=== PATIENT | female | born 1995 | race Caucasian/White ===

== ENCOUNTER 2020-12-26 09:01 | Emergency (ER) | payer BC, OTHER ==
[~2020-12-26] VITALS: Ht 160 cm; Wt 102.1 kg
[~2020-12-26 09:01] MED LIST: PRED20TA PO
[2020-12-26] MEDS ORDERED: NS 1,000 ML IV ONE (09:40)
[2020-12-26 11:05] LABS: BASO # 0.1 10^3/uL (0.0-0.2); BASO % 0.5 % (0.0-1.0); EOS # 0.2 10^3/uL (0.0-0.5); EOS % 1.4 % (0.0-3.0); HEMATOCRIT 39.4 % (36.0-47.0); LYMPH % 26.8 % (24.0-44.0); MEAN CORPUSCULAR HEMOGLOBIN 28.9 pg (27.0-33.0); MEAN CORPUSCULAR VOLUME 87.6 fl (80.0-96.0); MONO # 0.8 10^3/uL (0.0-0.8); MONO % 7.2 % (2.0-8.0); NEUTROPHILS % 63.3 % (36.0-66.0); PLATELET COUNT, AUTOMATED 279 10^3/uL (150-450); WHITE BLOOD COUNT 11.1 10^3/uL (4.0-10.0)
--- NOTE | 2020-12-26 11:19 | REP ---
INDICATION: heavy bleeding. COMPARISON: None. TECHNIQUE: Transabdominal and transvaginal scanning performed. FINDINGS: Uterine dimensions are 6.8 x 3.8 x 4.5 cm. Endometrial echo is 13 mm in AP dimension and centrally placed. 3 mm cyst is seen in the endometrium of the lower uterine segment. There are multiple nabothian cysts in the region of the cervix. The bladder is empty . The right ovary has dimensions of 4.2 x 2.7 x 3.0 cm. It's Doppler flow is normal with a resistive index of 0.32. The left ovary dimensions are 2.7 x 2.1 x 3.2 cm. It's Doppler flow was normal with resistive index of 0.52. There is no adnexal mass identified. No free fluid is seen in the cul-de-sac. IMPRESSION: Endometrium 13 mm in AP thickness. There is a 3 mm cyst in the endometrium of the lower uterine segment. Otherwise negative pelvic ultrasound. <Electronically signed by Raza Rios > 12/26/20 1110
[2020-12-26 11:20] LABS: INR 1.01; PROTHROMBIN TIME 13.5 SECONDS (12.5-14.3)
[2020-12-26 11:21] LABS: PARTIAL THROMBOPLASTIN TIME 30.2 SECONDS (24.2-38.5)
[2020-12-26] MEDS ORDERED: medroxyPROGESTERone 5MG TABLET PO ONE (12:35)
[2020-12-26] MEDS ORDERED: PROV10TA PO (12:39)
[2020-12-26 14:32] VITALS: BP 128/76
== END 2020-12-26 14:35 | disposition home or self-care (01) ==
LOC: M ED 09:01
DX: N93.8 Other specified abnormal uterine and vaginal bleeding (principal); N85.8 Other specified noninflammatory disorders of uterus; R51.9 Headache, unspecified; R42 Dizziness and giddiness; E66.9 Obesity, unspecified; Z88.8 Allergy status to other drugs, medicaments and biological substances

== ENCOUNTER → 2021-02-08 | Outpatient (REF) | payer OTHER ==
[~2021-02-08] MED LIST changes: +PROV10TA PO
[2021-02-08 18:35] LABS: HEMATOCRIT 39.2 % (36.0-47.0); HEMOGLOBIN 12.8 g/dl (12.0-15.5); MEAN CORPUSCULAR HEMOGLOBIN 28.8 pg (27.0-33.0); MEAN CORPUSCULAR HGB CONC 32.7 g/dl (32.0-36.5); MEAN CORPUSCULAR VOLUME 88.3 fl (80.0-96.0); PLATELET COUNT, AUTOMATED 298 10^3/uL (150-450); RED BLOOD COUNT 4.44 10^6/uL (4.00-5.40); WHITE BLOOD COUNT 9.5 10^3/uL (4.0-10.0)
[2021-02-08 22:09] LABS: FREE T4 1.02 NG/DL (0.76-1.46); THYROID STIMULATING HORMONE 4.95 uIU/ML (0.358-3.740)
== END ==
LOC: M PLALAB 15:41
PROVIDERS: ATTEND Advanced Practice Midwife
DX: N92.6 Irregular menstruation, unspecified (principal); N97.0 Female infertility associated with anovulation

== ENCOUNTER → 2021-02-08 | Outpatient (REF) | payer OTHER | LOC: M SFHCWAGY 18:56 | PROVIDERS: ATTEND Advanced Practice Midwife | DX: Z12.4 Encounter for screening for malignant neoplasm of cervix (principal) ==

== ENCOUNTER → 2021-02-09 | Outpatient (CLI) | payer OTHER ==
--- NOTE | 2021-02-09 15:21 | REP ---
INDICATION: N92.6 IRREG MENSES. Infertility associated with anovulation. COMPARISON: Comparison pelvic sonography December 27, 2019.. TECHNIQUE: Transabdominal and transvaginal scanning were performed. FINDINGS: Uterine dimensions are normal at 7.4 x 4.4 x 5.2 cm. Endometrial echo is 1.7 cm thick and centrally placed. No free fluid is seen in the cul-de-sac. Visualized bladder lyons are smooth. Uterus is retroverted. There are cervical nabothian cysts again noted. No free fluid is seen. The right ovary has dimensions of 4.4 x 2.4 x 2.7 cm. . The left ovary dimensions are normal as well at 5.1 x 2.0 x 3.0 cm. Normal Doppler flow is present in both ovaries. . There are multiple subcentimeter follicles seen in both ovaries. No significant ovarian cyst or mass is observed. IMPRESSION: Normal pelvic sonography. <Electronically signed by Simone Ruiz > 02/09/21 1234
== END ==
LOC: M WHC 09:10
PROVIDERS: ATTEND Advanced Practice Midwife
DX: N92.6 Irregular menstruation, unspecified (principal); N97.0 Female infertility associated with anovulation

== ENCOUNTER → 2021-04-24 | Outpatient (CLI) | payer OTHER ==
[2021-04-24 14:05] LABS: FREE T4 0.91 NG/DL (0.76-1.46); THYROID STIMULATING HORMONE 2.23 uIU/ML (0.358-3.740)
== END ==
LOC: M PLALAB 09:49
PROVIDERS: ATTEND Advanced Practice Midwife
DX: E03.9 Hypothyroidism, unspecified (principal)

== ENCOUNTER → 2022-01-08 | Outpatient (CLI) | payer OTHER ==
[2022-01-08 15:54] LABS: HEMOGLOBIN A1c 5.4 %
[2022-01-08 16:06] LABS: FREE T4 0.92 NG/DL (0.76-1.46); THYROID STIMULATING HORMONE 1.88 uIU/ML (0.358-3.740)
== END ==
LOC: M PLALAB 13:27
PROVIDERS: ATTEND Advanced Practice Midwife
DX: E28.2 Polycystic ovarian syndrome (principal)

== ENCOUNTER → 2022-08-18 | Outpatient (REF) | payer OTHER, BC | LOC: M WUC 19:10 | PROVIDERS: ATTEND Physician Assistant | DX: J02.9 Acute pharyngitis, unspecified (principal) ==

== ENCOUNTER → 2022-11-08 | Outpatient (REF) | LOC: M LABSMTC 09:27 | PROVIDERS: ATTEND Family Medicine | DX: Z11.52 Encounter for screening for COVID-19 (principal) ==

== ENCOUNTER → 2022-12-05 | Outpatient (CLI) | payer BC | LOC: M PLALAB 15:32 | PROVIDERS: ATTEND Advanced Practice Midwife | DX: Z34.90 Encounter for supervision of normal pregnancy, unspecified, unspecified trimester (principal); Z3A.00 Weeks of gestation of pregnancy not specified ==

== ENCOUNTER → 2023-03-14 | Outpatient (REF) | LOC: M LAB LCGH 10:29 | PROVIDERS: ATTEND Obstetrics & Gynecology Reproductive Endocrinology | DX: R89.1 Abnormal level of hormones in specimens from other organs, systems and tissues (principal) ==

== ENCOUNTER → 2023-06-20 | Outpatient (CLI) | payer BC ==
[2023-06-20 14:42] LABS: HEMATOCRIT 37.3 % (36.0-47.0); HEMOGLOBIN 12.6 g/dl (12.0-15.5); MEAN CORPUSCULAR HEMOGLOBIN 29.5 pg (27.0-33.0); MEAN CORPUSCULAR HGB CONC 33.8 g/dl (32.0-36.5); MEAN CORPUSCULAR VOLUME 87.4 fl (80.0-96.0); PLATELET COUNT, AUTOMATED 254 10^3/uL (150-450); RED BLOOD COUNT 4.27 10^6/uL (4.00-5.40); WHITE BLOOD COUNT 7.6 10^3/uL (4.0-10.0)
[2023-06-20 15:42] LABS: HIV 1&2 SCREEN NEGATIVE (NEGATIVE)
[2023-06-20 15:46] LABS: GC DNA AMPLIFICATION NEGATIVE (NEGATIVE)
[2023-06-20 15:50] LABS: HEPATITIS C VIRUS ABY INDEX 0.12 INDEX (<0.8)
== END ==
LOC: M PLALAB 12:04
PROVIDERS: ATTEND Advanced Practice Midwife
DX: O09.811 Supervision of pregnancy resulting from assisted reproductive technology, first trimester (principal)

== ENCOUNTER → 2023-10-15 | Outpatient (CLI) | payer BC | LOC: M LAB 07:39 | PROVIDERS: ATTEND Advanced Practice Midwife | DX: O99.810 Abnormal glucose complicating pregnancy (principal); Z3A.00 Weeks of gestation of pregnancy not specified ==

== ENCOUNTER → 2023-12-06 | Outpatient (REF) | payer BC | LOC: M SFHCWAGY 13:13 | PROVIDERS: ATTEND Advanced Practice Midwife | DX: O99.283 Endocrine, nutritional and metabolic diseases complicating pregnancy, third trimester (principal); Z3A.00 Weeks of gestation of pregnancy not specified ==

== ENCOUNTER 2023-12-19 11:04 | Outpatient (CLI) | payer BC ==
[~2023-12-19] VITALS: Ht 160 cm; Wt 105.7 kg
[2023-12-19] VITALS (7 sets, daily range): BP systolic 126–136; BP diastolic 72–80; O2SAT 94–97
[2023-12-19] MEDS ORDERED: TUMS500C PO (11:48)
[2023-12-19] MEDS ORDERED: PRENTAB9 PO (11:48)
[2023-12-19] MEDS ORDERED: METF-817 PO (11:50)
[2023-12-19] MEDS ORDERED: MAGN400C2 PO (11:51)
[2023-12-19] MEDS ORDERED: LEVO50TA5 PO (11:51)
[2023-12-19] MEDS ORDERED: PEPC1TAB5 PO (11:51)
[2023-12-19] MEDS ORDERED: HOME MED LIST COMPLETE! XX SCH (11:55)
== END 2023-12-19 14:40 | disposition home or self-care (01) ==
LOC: M LDO 11:04
PROVIDERS: ATTEND Obstetrics & Gynecology
DX: O32.1XX9 Maternal care for breech presentation, other fetus (principal); Z3A.38 38 weeks gestation of pregnancy
CPT/HCPCS: 59025; 59412; 76815; G0463

== ENCOUNTER 2023-12-23 22:59 | Inpatient (IN) | payer BC ==
[~2023-12-23] VITALS: Ht 160 cm; Wt 106.2 kg
[~2023-12-23 22:59] MED LIST changes: +LEVO50TA5 PO; +MAGN400C2 PO; +METF-817 PO; +PEPC1TAB5 PO; +PRENTAB9 PO; +TUMS500C PO
[2023-12-23 23:25] VITALS: BP 132/75
[2023-12-24] VITALS (10 sets, daily range): BP systolic 91–105; BP diastolic 51–59; TEMP 97.9; O2SAT 96–99
[2023-12-24 00:13] LABS: APPEARANCE, URINE HAZY (CLEAR); BACTERIA, URINE AUTO NEGATIVE (NEGATIVE); BILIRUBIN, URINE AUTO NEGATIVE (NEGATIVE); BLOOD, URINE BLOOD NEGATIVE (NEGATIVE); COLOR, URINE YELLOW (YELLOW); GLUCOSE, URINE (UA) AUTO NEGATIVE (NEGATIVE); KETONE, URINE AUTO TRACE mg/dL (NEGATIVE); LEUKOCYTE ESTERASE, URINE AUTO TRACE (NEGATIVE); MUCUS, URINE SMALL (NEGATIVE); NITRITE, URINE AUTO NEGATIVE (NEGATIVE); PROTEIN, URINE AUTO NEGATIVE (NEGATIVE); RBC, URINE AUTO 1 /HPF (0-3); SPECIFIC GRAVITY URINE AUTO 1.024 (1.002-1.035); SQUAMOUS EPITHELIAL CELL UR AU 2 /HPF (0-6); UROBILINOGEN, URINE AUTO 0.2 mg/dL (0.0-2.0); WBC, URINE AUTO 5 /HPF (0-3)
[2023-12-24] MEDS ORDERED: TRANEXAMIC ACID INJection 1,000 MG in NS 100 ML IV PRN (00:40)
[2023-12-24] MEDS ORDERED: OXYTOCIN INJ 10UNITS/ML 1ML VIAL IM PRN (00:40)
[2023-12-24] MEDS ORDERED: CARBOPROST TROMETHAMINE 250 MCG/ML AMP IM PRN (00:40)
[2023-12-24] MEDS ORDERED: METHYLERGONOVINE MALEATE 0.2MG/ML 1ML VIAL IM PRN (00:40)
[2023-12-24] MEDS: CLINDAMYCIN 900 MG in IV 1 EA IV ONE (00:50)
[2023-12-24] MEDS ORDERED: OXYTOCIN 30UNITS IN 0.9% NaCl 500ML IV BAG As Ordered ONE (01:16)
[2023-12-24] MEDS ORDERED: MORPHINE PRES-FREE INJ 10 MG/10 ML VIAL As Ordered ONE (01:16)
[2023-12-24] MEDS ORDERED: ePHEDrine SULFATE 25 MG/5 ML(5MG/ML) SYRINGE As Ordered ONE (01:16)
[2023-12-24] MEDS ORDERED: PHENYLephrine 500MCG 5ML (100MCG/ML) SYRINGE As Ordered ONE (01:16)
[2023-12-24] MEDS: GENTAMICIN 400 MG in D5W 100 ML IV ONE (01:22)
[2023-12-24] MEDS: LACTATED RINGER'S 1000 ML IV STA (01:22)
[2023-12-24 01:59] LABS: HEMATOCRIT 36.5 % (36.0-47.0); HEMOGLOBIN 12.5 g/dl (12.0-15.5); MEAN CORPUSCULAR HEMOGLOBIN 30.1 pg (27.0-33.0); MEAN CORPUSCULAR HGB CONC 34.2 g/dl (32.0-36.5); PLATELET COUNT, AUTOMATED 207 10^3/uL (150-450); RED BLOOD COUNT 4.15 10^6/uL (4.00-5.40)
[2023-12-24] MEDS: BICITRA 30ML SOLN UDC PO ONE (02:03)
[2023-12-24] MEDS: AZITHROMYCIN INJ 500 MG, VIAL MATE ADAPTER 1 EACH in NS 250 ML IV ONE (02:03)
[2023-12-24] MEDS ORDERED: KETOROLAC 60MG 2ML VIAL As Ordered ONE (02:28)
[2023-12-24] MEDS ORDERED: ONDANSETRON 4MG 2ML VIAL As Ordered ONE (02:28)
[2023-12-24] MEDS ORDERED: DOCUSATE SODIUM 100MG CAPSULE PO PRN (03:00)
[2023-12-24] MEDS ORDERED: RHOGAM 300MCG (1500IU) INJ IM SCH (03:00)
[2023-12-24] MEDS ORDERED: ONDANSETRON 4MG 2ML VIAL IV PRN ×2 (03:00→03:10)
[2023-12-24] MEDS ORDERED: SIMETHICONE 80MG CHEW TAB PO PRN (03:00)
[2023-12-24] MEDS: SLF 3 ML SYR IV SCH (03:10)
[2023-12-24] MEDS ORDERED: **NOTE PATIENT COMMENT** MISC XX SCH (03:10)
[2023-12-24] MEDS ORDERED: METOCLOPRAMIDE INJ 10MG/2ML VIAL IV PRN (03:10)
[2023-12-24] MEDS ORDERED: fentaNYL 100 MCG/2 ML INJECTION IV PRN (03:10)
[2023-12-24] MEDS ORDERED: HYDROMORPHONE HCL 0.5 MG/ 0.5 ML SYRINGE IV PRN (03:10)
[2023-12-24] MEDS ORDERED: oxyCODONE 5MG TAB PO PRN (03:10)
[2023-12-24] MEDS ORDERED: NALOXONE INJ 0.4MG/1ML VIAL IV PRN ×2 (03:10)
[2023-12-24] MEDS ORDERED: diphenhydrAMINE 50MG/ML VIAL IV PRN (03:10)
[2023-12-24] MEDS ORDERED: MEPERIDINE 25 MG/ML 1ML VIAL IV PRN (03:10)
[2023-12-24] MEDS: OXYTOCIN DRIP 30 UNITS in IV 1 EA IV SCH (03:26)
[2023-12-24] MEDS ORDERED: PERCOCET 5MG/325MG TAB As Ordered ONE (03:43)
[2023-12-24] MEDS: PERCOCET 5MG/325MG TAB PO PRN (03:45)
[2023-12-24 03:46] LABS: CORD GAS ABE A -1.2; CORD GAS ABE V -4.7; CORD GAS HCO3 A 26.1 MMOL/L; CORD GAS HCO3 V 20.9 MMOL/L; CORD GAS O2 SAT A 20.2 %; CORD GAS PCO2 A 54.7 mmHg; CORD GAS PCO2 V 40.8 mmHg; CORD GAS PH A 7.297 UNITS; CORD GAS PH V 7.328 UNITS; CORD GAS PO2 A 12.1 mmHg; CORD GAS PO2 V 30.7 mmHg; CORD GAS SBC A 21.7 MMOL/L; CORD GAS SBC V 20.1 MMOL/L; CORD GAS TCO2 A 27.8 MMOL/L; CORD GAS TCO2 V 22.2 MMOL/L
[2023-12-24] MEDS: LEVOTHYROXINE 50MCG TABLET (0.05MG) PO SCH (06:00)
[2023-12-24] MEDS: LR 1,000 ML IV SCH (07:41)
[2023-12-24] MEDS: PRENATAL VITAMINS CHEWABLE TABLET PO SCH (09:37)
[2023-12-24] MEDS: KETOROLAC 30 MG/ML 1ML VIAL IV SCH (09:37)
[2023-12-25 02:52] VITALS: BP 112/53; O2SAT 98
[2023-12-25] MEDS: IBUPROFEN 800 MG TAB PO SCH (05:28)
[2023-12-25 06:04] VITALS: BP 100/55; O2SAT 100
[2023-12-25] MEDS: PERCOCET 5MG/325MG TAB PO PRN (06:16)
[2023-12-25 06:23] LABS: HEMATOCRIT 31.8 % (36.0-47.0); HEMOGLOBIN 10.7 g/dl (12.0-15.5); MEAN CORPUSCULAR HEMOGLOBIN 29.8 pg (27.0-33.0); MEAN CORPUSCULAR HGB CONC 33.6 g/dl (32.0-36.5); MEAN CORPUSCULAR VOLUME 88.6 fl (80.0-96.0); PLATELET COUNT, AUTOMATED 152 10^3/uL (150-450); RED BLOOD COUNT 3.59 10^6/uL (4.00-5.40); WHITE BLOOD COUNT 9.3 10^3/uL (4.0-10.0)
[2023-12-25] MEDS ORDERED: OXYC1TAB23 PO (09:56)
[2023-12-25] MEDS ORDERED: IBUP80TA PO (09:56)
[2023-12-25] MEDS ORDERED: COLA100C5 PO (09:56)
[2023-12-25 14:00] VITALS: BP 117/57; O2SAT 96
[2023-12-25 18:00] VITALS: BP 118/61; O2SAT 97
[2023-12-25 22:00] VITALS: BP 105/57; O2SAT 98
[2023-12-26 02:00] VITALS: BP 115/68; O2SAT 99
[2023-12-26 05:27] VITALS: BP 114/57; O2SAT 97
[2023-12-26] MEDS: MEASLES,MUMPS,RUBELLA VACCINE INJ (MMR-II) SC.IMMUN ONE (09:00)
== END 2023-12-26 13:26 | disposition home or self-care (01) | DRG 540 ==
LOC: M LDO 22:59 → M LDI 12-24 00:39 → M OBS 12-24 04:45
PROVIDERS: ADMIT Advanced Practice Midwife; ATTEND Advanced Practice Midwife
PROC: 10D00Z1 Extraction of Products of Conception, Low, Open Approach (ICD-10-PCS; principal; 2023-12-24 02:00)
DX: O32.1XX0 Maternal care for breech presentation, not applicable or unspecified (principal); E66.9 Obesity, unspecified; E28.2 Polycystic ovarian syndrome; O99.214 Obesity complicating childbirth; Z37.0 Single live birth; Z3A.38 38 weeks gestation of pregnancy; O99.284 Endocrine, nutritional and metabolic diseases complicating childbirth; Z87.51 Personal history of pre-term labor; Z88.8 Allergy status to other drugs, medicaments and biological substances; Z79.899 Other long term (current) drug therapy; Z14.8 Genetic carrier of other disease; O32.6XX0 Maternal care for compound presentation, not applicable or unspecified

== ENCOUNTER → 2024-06-10 | Outpatient (REF) | payer BC ==
[~2024-06-10] MED LIST changes: +COLA100C5 PO; +IBUP80TA PO; +OXYC1TAB23 PO
== END ==
LOC: M SFHCWAGY 17:58
PROVIDERS: ATTEND Advanced Practice Midwife
DX: Z12.4 Encounter for screening for malignant neoplasm of cervix (principal)

== ENCOUNTER 2024-07-08 16:03 | Inpatient (IN) | payer BC ==
[~2024-07-08] VITALS: Ht 160 cm; Wt 86.2 kg
[2024-07-08] MEDS ORDERED: VENL150C43 PO (16:36)
[2024-07-08] MEDS ORDERED: CHOL1CAP10 PO (16:37)
[2024-07-08 17:17] LABS: HEMATOCRIT 38.5 % (36.0-47.0); HEMOGLOBIN 13.3 g/dl (12.0-15.5); MEAN CORPUSCULAR HEMOGLOBIN 29.9 pg (27.0-33.0); MEAN CORPUSCULAR HGB CONC 34.5 g/dl (32.0-36.5); MEAN CORPUSCULAR VOLUME 86.5 fl (80.0-96.0); PLATELET COUNT, AUTOMATED 256 10^3/uL (150-450); RED BLOOD COUNT 4.45 10^6/uL (4.00-5.40); WHITE BLOOD COUNT 7.8 10^3/uL (4.0-10.0)
[2024-07-08 17:37] LABS: AMPHETAMINES LEVEL URINE NEGATIVE (NEGATIVE); BARBITURATES URINE NEGATIVE (NEGATIVE)
[2024-07-08 17:38] LABS: BENZODIAZEPINES URINE NEGATIVE (NEGATIVE); CANNABINOIDS URINE NEGATIVE (NEGATIVE); COCAINE METABOLITE URINE NEGATIVE (NEGATIVE); METHADONE URINE NEGATIVE (NEGATIVE); OPIATES URINE NEGATIVE (NEGATIVE); PHENCYCLIDINE URINE NEGATIVE (NEGATIVE)
[2024-07-08 17:42] LABS: ETHYL ALCOHOL (ETHANOL) < 0.003 % (0.000-0.010)
[2024-07-08 17:43] LABS: ALBUMIN 4.2 G/DL (3.2-5.2); ALKALINE PHOSPHATASE 106 U/L (46-116); ALT/SGPT 19 U/L (7.0-40); AST/SGOT 11 U/L (<34); BILIRUBIN,DIRECT 0.1 MG/DL (<0.4); BILIRUBIN,TOTAL 0.4 MG/DL (0.3-1.2); BLOOD UREA NITROGEN 18 MG/DL (9-23); CALCIUM LEVEL 9.7 MG/DL (8.5-10.1); CARBON DIOXIDE LEVEL 26 MMOL/L (20-31); CHLORIDE LEVEL 108 MMOL/L (98-107); CREATININE FOR GFR 0.73 MG/DL (0.55-1.30); GLOMERULAR FILTRATION RATE > 60.0 (>60); GLUCOSE, FASTING 102 MG/DL (60-100); SALICYLATE LEVEL < 3.0 MG/DL (<30); SODIUM LEVEL 141 MMOL/L (136-145); THYROID STIMULATING HORMONE 1.547 uIU/ML (0.55-4.78); TOTAL PROTEIN 7.6 G/DL (5.7-8.2)
[2024-07-08] MEDS ORDERED: MAALOX 30 ML SUSP *UDC PO PRN (18:55)
[2024-07-08] MEDS ORDERED: diphenhydrAMINE 25MG CAP PO PRN (18:55)
[2024-07-08] MEDS ORDERED: IBUPROFEN 400MG TAB PO PRN (18:55)
[2024-07-08] MEDS ORDERED: MOM 30ML SUSPENSION UDC PO PRN (18:55)
[2024-07-08] MEDS ORDERED: METF-838 PO (19:59)
[2024-07-08] MEDS ORDERED: HOME MED LIST COMPLETE! XX SCH (20:00)
[2024-07-08 21:00] VITALS: BP 120/64; TEMP 97.6; O2SAT 95
[2024-07-08] MEDS: metFORMIN XR 500MG TAB *GLUCOPHAGE XR PO SCH (21:08)
[2024-07-08] MEDS: traZODone 50 MG TAB PO PRN (21:08)
[2024-07-09 06:39] VITALS: BP 107/63; TEMP 97.4; O2SAT 96
[2024-07-09] MEDS: VENLAFAXINE **XR** 75MG CAPSULE PO SCH (08:53)
[2024-07-09] MEDS: ACETAMINOPHEN TAB 650MG DOSE (2X325MG) PO PRN (12:42)
[2024-07-09 18:35] VITALS: BP 130/88; TEMP 98.5; O2SAT 95
[2024-07-10 06:01] VITALS: BP 100/60; TEMP 97.1; O2SAT 97
[2024-07-10] MEDS: VENLAFAXINE **XR** 75MG CAPSULE PO SCH (08:15)
[2024-07-10 16:16] VITALS: BP 114/63; TEMP 98.5; O2SAT 98
[2024-07-11 06:17] VITALS: BP 103/60; TEMP 98; O2SAT 98
[2024-07-11 16:02] VITALS: BP 107/60; TEMP 97.4; O2SAT 98
[2024-07-12 06:18] VITALS: BP 112/57; TEMP 97; O2SAT 97
[2024-07-12 15:55] VITALS: BP 105/55; TEMP 98; O2SAT 99
[2024-07-13 06:16] VITALS: BP 136/86; TEMP 97.9; O2SAT 98
[2024-07-13] MEDS ORDERED: VENL75CA47 PO (09:11)
== END 2024-07-13 10:31 | disposition home or self-care (01) | DRG 757 ==
LOC: M ED 16:03 → M ED INP 18:55 → M PSY 20:21
PROVIDERS: ADMIT Psychiatry & Neurology Psychiatry; ATTEND Psychiatry & Neurology Psychiatry
DX: F53.0 Postpartum depression (principal); F33.2 Major depressive disorder, recurrent severe without psychotic features; R45.851 Suicidal ideations; E28.2 Polycystic ovarian syndrome; Z79.84 Long term (current) use of oral hypoglycemic drugs; Z79.899 Other long term (current) drug therapy; Z88.8 Allergy status to other drugs, medicaments and biological substances; Z63.0 Problems in relationship with spouse or partner

== ENCOUNTER 2024-08-26 12:12 | Inpatient (IN) | payer BC ==
[~2024-08-26] VITALS: Ht 160 cm; Wt 86.5 kg
[~2024-08-26 12:12] MED LIST changes: +CHOL1CAP10 PO; +METF-1156 PO; -METF-817 PO; +METF-838 PO; +VENL150C43 PO; +VENL75CA47 PO
[2024-08-26 13:10] LABS: HEMATOCRIT 41.5 % (36.0-47.0); HEMOGLOBIN 14.2 g/dl (12.0-15.5); MEAN CORPUSCULAR HEMOGLOBIN 30.5 pg (27.0-33.0); MEAN CORPUSCULAR HGB CONC 34.2 g/dl (32.0-36.5); MEAN CORPUSCULAR VOLUME 89.1 fl (80.0-96.0); PLATELET COUNT, AUTOMATED 260 10^3/uL (150-450); RED BLOOD COUNT 4.66 10^6/uL (4.00-5.40); WHITE BLOOD COUNT 8.8 10^3/uL (4.0-10.0)
[2024-08-26 13:24] LABS: AMPHETAMINES LEVEL URINE NEGATIVE (NEGATIVE); BARBITURATES URINE NEGATIVE (NEGATIVE); BENZODIAZEPINES URINE NEGATIVE (NEGATIVE); CANNABINOIDS URINE NEGATIVE (NEGATIVE); COCAINE METABOLITE URINE NEGATIVE (NEGATIVE); METHADONE URINE NEGATIVE (NEGATIVE); OPIATES URINE NEGATIVE (NEGATIVE); PHENCYCLIDINE URINE NEGATIVE (NEGATIVE)
[2024-08-26 13:26] LABS: ETHYL ALCOHOL (ETHANOL) 0.004 % (0.000-0.010); SALICYLATE LEVEL < 3.0 MG/DL (<30)
[2024-08-26 13:28] LABS: ALBUMIN 4.1 G/DL (3.2-5.2); ALKALINE PHOSPHATASE 107 U/L (35-104); ALT/SGPT 21 U/L (7.0-40); AST/SGOT 16 U/L (<34); BILIRUBIN,DIRECT < 0.1 MG/DL (<0.4); BILIRUBIN,TOTAL 0.4 MG/DL (0.3-1.2); BLOOD UREA NITROGEN 13 MG/DL (9-23); CALCIUM LEVEL 9.6 MG/DL (8.5-10.1); CARBON DIOXIDE LEVEL 27 MMOL/L (20-31); CHLORIDE LEVEL 109 MMOL/L (98-107); CREATININE FOR GFR 0.52 MG/DL (0.55-1.30); GLOMERULAR FILTRATION RATE > 60.0 (>60); GLUCOSE, FASTING 90 MG/DL (60-100); POTASSIUM SERUM 4.2 MMOL/L (3.5-5.1); SODIUM LEVEL 142 MMOL/L (136-145); TOTAL PROTEIN 7.8 G/DL (5.7-8.2)
[2024-08-26 13:32] LABS: THYROID STIMULATING HORMONE 1.084 uIU/ML (0.55-4.78)
[2024-08-26] MEDS: VENLAFAXINE **XR** 75MG CAPSULE PO ONE (15:03)
[2024-08-26] MEDS ORDERED: MAALOX 30 ML SUSP *UDC PO PRN (15:55)
[2024-08-26] MEDS ORDERED: ACETAMINOPHEN 325 MG TAB PO PRN (15:55)
[2024-08-26] MEDS ORDERED: diphenhydrAMINE 25MG CAP PO PRN (15:55)
[2024-08-26] MEDS ORDERED: IBUPROFEN 400MG TAB PO PRN (15:55)
[2024-08-26] MEDS ORDERED: MOM 30ML SUSPENSION UDC PO PRN (15:55)
[2024-08-26] MEDS ORDERED: D-50CAP PO (15:57)
[2024-08-26] MEDS ORDERED: VENL-115 PO (15:57)
[2024-08-26] MEDS ORDERED: HOME MED LIST COMPLETE! XX SCH (16:00)
[2024-08-26 17:21] VITALS: BP 110/64; TEMP 96.9; O2SAT 97
[2024-08-26 19:03] LABS: HCG, SERUM QUALITATIVE NEGATIVE (NEGATIVE)
[2024-08-27 06:09] VITALS: BP 124/78; TEMP 97.5; O2SAT 99
[2024-08-27] MEDS: VENLAFAXINE **XR** 75MG CAPSULE PO SCH (09:16)
[2024-08-27] MEDS: busPIRone 10 MG TAB PO SCH (09:16)
[2024-08-27] MEDS: hydrOXYzine 50 MG TAB PO PRN (13:55)
[2024-08-27 14:39] VITALS: BP 99/74; TEMP 97.6; O2SAT 96
[2024-08-27] MEDS: metFORMIN XR 500MG TAB *GLUCOPHAGE XR PO SCH (17:58)
[2024-08-27] MEDS: PRENATAL VITAMINS CHEWABLE TABLET PO SCH (20:31)
[2024-08-27] MEDS: ARIPiprazole 2 MG TAB PO SCH (20:31)
[2024-08-28 06:04] VITALS: BP 98/57; TEMP 97.7; O2SAT 96
[2024-08-28] MEDS ORDERED: hydrOXYzine 50 MG TAB PO PRN (08:25)
[2024-08-28 15:50] VITALS: BP 128/60; TEMP 97.9; O2SAT 97
[2024-08-28] MEDS: traZODone 50 MG TAB PO PRN (21:19)
[2024-08-29 06:31] VITALS: BP 106/56; TEMP 97.5; O2SAT 97
[2024-08-29 15:14] VITALS: BP 122/58; TEMP 98.2; O2SAT 96
[2024-08-29] MEDS: hydrOXYzine 50 MG TAB PO PRN (22:16)
[2024-08-30 06:07] VITALS: BP 110/71; TEMP 98.1; O2SAT 99
[2024-08-30 15:20] VITALS: BP 108/64; TEMP 97.9; O2SAT 97
[2024-08-31 06:16] VITALS: BP 91/56; TEMP 98; O2SAT 98
[2024-09-01 06:05] VITALS: BP 105/62; TEMP 97.6; O2SAT 100
[2024-09-01 15:46] VITALS: BP 108/57; TEMP 97.6; O2SAT 98
[2024-09-02 06:09] VITALS: BP 149/73; TEMP 97.8; O2SAT 98
[2024-09-02] MEDS ORDERED: BUSP10TA PO (08:09)
[2024-09-02] MEDS ORDERED: HYDR-3363 PO (08:09)
[2024-09-02] MEDS ORDERED: ABIL1TAB13 PO (08:09)
[2024-09-02] MEDS ORDERED: HYDR50TA70 PO (08:09)
[2024-09-02] MEDS ORDERED: VENL75CA47 PO (08:09)
== END 2024-09-02 10:50 | disposition home or self-care (01) | DRG 751 ==
LOC: EDBD 12:12 → M ED 12:12 → M ED INP 15:53 → M PSY 16:36
PROVIDERS: ADMIT Psychiatry & Neurology Psychiatry; ATTEND Psychiatry & Neurology Psychiatry
DX: F33.2 Major depressive disorder, recurrent severe without psychotic features (principal); R45.851 Suicidal ideations; Z63.0 Problems in relationship with spouse or partner; Z88.8 Allergy status to other drugs, medicaments and biological substances; Z79.899 Other long term (current) drug therapy; E28.2 Polycystic ovarian syndrome

== ENCOUNTER 2024-09-23 23:33 | Inpatient (IN) | payer BC ==
[~2024-09-23] VITALS: Ht 160 cm; Wt 89.6 kg
[~2024-09-23 23:33] MED LIST changes: +ABIL1TAB13 PO; +BUSP10TA PO; +D-50CAP PO; +HYDR-3363 PO; +HYDR50TA70 PO; +VENL-115 PO
[2024-09-24 00:27] LABS: HEMATOCRIT 39.2 % (36.0-47.0); HEMOGLOBIN 13.3 g/dl (12.0-15.5); MEAN CORPUSCULAR HEMOGLOBIN 30.6 pg (27.0-33.0); MEAN CORPUSCULAR HGB CONC 33.9 g/dl (32.0-36.5); MEAN CORPUSCULAR VOLUME 90.1 fl (80.0-96.0); PLATELET COUNT, AUTOMATED 327 10^3/uL (150-450); RED BLOOD COUNT 4.35 10^6/uL (4.00-5.40); WHITE BLOOD COUNT 12.2 10^3/uL (4.0-10.0)
[2024-09-24 00:38] LABS: ETHYL ALCOHOL (ETHANOL) < 0.003 % (0.000-0.010)
[2024-09-24 00:39] LABS: ALBUMIN 3.8 G/DL (3.2-5.2); ALKALINE PHOSPHATASE 119 U/L (35-104); ALT/SGPT 17 U/L (7.0-40); AST/SGOT 10 U/L (<34); BILIRUBIN,DIRECT < 0.1 MG/DL (<0.4); BILIRUBIN,TOTAL 0.2 MG/DL (0.3-1.2); BLOOD UREA NITROGEN 15 MG/DL (9-23); CALCIUM LEVEL 9.4 MG/DL (8.5-10.1); CARBON DIOXIDE LEVEL 25 MMOL/L (20-31); CHLORIDE LEVEL 105 MMOL/L (98-107); CREATININE FOR GFR 1.26 MG/DL (0.55-1.30); GLOMERULAR FILTRATION RATE 53.4 (>60); GLUCOSE, FASTING 118 MG/DL (60-100); POTASSIUM SERUM 4.4 MMOL/L (3.5-5.1); SALICYLATE LEVEL < 3.0 MG/DL (<30); SODIUM LEVEL 139 MMOL/L (136-145); TOTAL PROTEIN 7.7 G/DL (5.7-8.2)
[2024-09-24 00:40] LABS: HCG, SERUM QUALITATIVE NEGATIVE (NEGATIVE)
[2024-09-24 00:41] LABS: THYROID STIMULATING HORMONE 4.399 uIU/ML (0.55-4.78)
[2024-09-24 00:53] LABS: AMPHETAMINES LEVEL URINE NEGATIVE (NEGATIVE); BARBITURATES URINE NEGATIVE (NEGATIVE); BENZODIAZEPINES URINE NEGATIVE (NEGATIVE); CANNABINOIDS URINE NEGATIVE (NEGATIVE); COCAINE METABOLITE URINE NEGATIVE (NEGATIVE); METHADONE URINE NEGATIVE (NEGATIVE); OPIATES URINE NEGATIVE (NEGATIVE); PHENCYCLIDINE URINE NEGATIVE (NEGATIVE)
[2024-09-24] MEDS ORDERED: MAALOX 30 ML SUSP *UDC PO PRN (01:05)
[2024-09-24] MEDS ORDERED: ACETAMINOPHEN 325 MG TAB PO PRN (01:05)
[2024-09-24] MEDS ORDERED: traZODone 50 MG TAB PO PRN (01:05)
[2024-09-24] MEDS ORDERED: MOM 30ML SUSPENSION UDC PO PRN (01:05)
[2024-09-24] MEDS ORDERED: diphenhydrAMINE 25MG CAP PO PRN (01:05)
[2024-09-24] MEDS ORDERED: IBUPROFEN 400MG TAB PO PRN (01:05)
[2024-09-24 04:10] VITALS: BP 119/75; TEMP 97.5; O2SAT 98
[2024-09-24] MEDS: metFORMIN (GLUCOPHAGE) 500MG TAB PO SCH ×2 (08:00→20:00)
[2024-09-24] MEDS ORDERED: METO1TAB87 PO (08:12)
[2024-09-24] MEDS ORDERED: LATU20TA PO (08:12)
[2024-09-24] MEDS ORDERED: NORE5TAB PO (08:12)
[2024-09-24] MEDS ORDERED: ATIV1TAB10 PO (08:12)
[2024-09-24] MEDS ORDERED: METF500T13 PO (08:15)
[2024-09-24] MEDS ORDERED: BUSP10TA PO (08:17)
[2024-09-24] MEDS ORDERED: TRAZ-252 PO (08:17)
[2024-09-24] MEDS ORDERED: HYDR50TA70 PO (08:19)
[2024-09-24] MEDS ORDERED: HYDR-3363 PO (08:19)
[2024-09-24] MEDS ORDERED: HOME MED LIST COMPLETE! XX SCH (08:20)
[2024-09-24] MEDS: METOPROLOL TART 12.5 MG PER 1/2 TAB PO SCH (09:00)
[2024-09-24 10:34] LABS: BLOOD UREA NITROGEN 17 MG/DL (9-23); CALCIUM LEVEL 9.6 MG/DL (8.5-10.1); CARBON DIOXIDE LEVEL 30 MMOL/L (20-31); CHLORIDE LEVEL 107 MMOL/L (98-107); CREATININE FOR GFR 0.88 MG/DL (0.55-1.30); GLOMERULAR FILTRATION RATE > 60.0 (>60); GLUCOSE, FASTING 79 MG/DL (60-100); POTASSIUM SERUM 4.3 MMOL/L (3.5-5.1); SODIUM LEVEL 140 MMOL/L (136-145)
[2024-09-24] MEDS: busPIRone 10 MG TAB PO SCH (10:49)
[2024-09-24] MEDS: VENLAFAXINE **XR** 75MG CAPSULE PO SCH (10:49)
[2024-09-24 13:15] VITALS: BP 114/57
[2024-09-24 17:19] VITALS: BP 106/55; TEMP 97; O2SAT 97
[2024-09-24] MEDS: LURASIDONE 20 MG TAB (LATUDA) PO SCH (17:57)
[2024-09-25 06:38] VITALS: BP 134/71; TEMP 97.2; O2SAT 100
[2024-09-25 08:34] VITALS: BP 146/84
[2024-09-25] MEDS: LORazepam 0.5 MG TAB PO PRN (10:32)
[2024-09-25 15:37] VITALS: BP 102/58; TEMP 97.3; O2SAT 97
[2024-09-25] MEDS: DIVALPROEX 125 MG TAB PO SCH (20:20)
[2024-09-26 06:19] VITALS: BP 105/57; TEMP 97.8; O2SAT 97
[2024-09-26 15:37] VITALS: BP 110/62; TEMP 98.6; O2SAT 98
[2024-09-26] MEDS: DIVALPROEX 250MG TAB PO SCH (20:47)
[2024-09-27 06:29] VITALS: BP 95/60; TEMP 97.4; O2SAT 98
[2024-09-27 08:27] VITALS: BP 112/69
[2024-09-27 15:20] VITALS: BP 101/55; TEMP 98.6; O2SAT 98
[2024-09-27] MEDS: DIVALPROEX 250MG TAB PO SCH (21:12)
[2024-09-28 06:40] VITALS: BP 100/55; TEMP 97.4; O2SAT 100
[2024-09-28 08:18] VITALS: BP 119/68
[2024-09-28 08:21] VITALS: BP 119/68
[2024-09-28] MEDS ORDERED: DEPA250T32 PO (08:58)
== END 2024-09-28 11:19 | disposition home or self-care (01) | DRG 753 ==
LOC: M ED 23:33 → M ED INP 09-24 01:02 → M PSY 09-24 03:45
PROVIDERS: ADMIT Psychiatry & Neurology Psychiatry; ATTEND Psychiatry & Neurology Psychiatry
DX: F31.9 Bipolar disorder, unspecified (principal); R45.851 Suicidal ideations; N17.9 Acute kidney failure, unspecified; E28.2 Polycystic ovarian syndrome; Z79.84 Long term (current) use of oral hypoglycemic drugs; Z79.899 Other long term (current) drug therapy; Z88.8 Allergy status to other drugs, medicaments and biological substances

== ENCOUNTER 2024-11-03 12:14 | Inpatient (IN) | payer BC ==
[~2024-11-03] VITALS: Ht 160 cm; Wt 97.0 kg
[~2024-11-03 12:14] MED LIST changes: +ATIV1TAB10 PO; +DEPA250T32 PO; +LATU20TA PO; +METF500T13 PO; +METO1TAB87 PO; +NORE5TAB PO; +TRAZ-252 PO
[2024-11-03] MEDS ORDERED: METF-838 (12:49)
[2024-11-03] MEDS ORDERED: DIVA250T67 (12:49)
[2024-11-03] MEDS ORDERED: LURA20TA (12:49)
[2024-11-03 13:09] LABS: HEMATOCRIT 44.1 % (36.0-47.0); HEMOGLOBIN 14.7 g/dl (12.0-15.5); MEAN CORPUSCULAR HGB CONC 33.3 g/dl (32.0-36.5); PLATELET COUNT, AUTOMATED 252 10^3/uL (150-450); WHITE BLOOD COUNT 8.1 10^3/uL (4.0-10.0)
[2024-11-03 13:31] LABS: AMPHETAMINES LEVEL URINE NEGATIVE (NEGATIVE); BARBITURATES URINE NEGATIVE (NEGATIVE); BENZODIAZEPINES URINE NEGATIVE (NEGATIVE); CANNABINOIDS URINE NEGATIVE (NEGATIVE); COCAINE METABOLITE URINE NEGATIVE (NEGATIVE); METHADONE URINE NEGATIVE (NEGATIVE); OPIATES URINE NEGATIVE (NEGATIVE); PHENCYCLIDINE URINE NEGATIVE (NEGATIVE)
[2024-11-03 13:33] LABS: ETHYL ALCOHOL (ETHANOL) 0.006 % (0.000-0.010)
[2024-11-03 13:34] LABS: HCG, SERUM QUALITATIVE NEGATIVE (NEGATIVE)
[2024-11-03 13:35] LABS: SALICYLATE LEVEL < 3.0 MG/DL (<30)
[2024-11-03 13:36] LABS: ALBUMIN 4.2 G/DL (3.2-5.2); ALKALINE PHOSPHATASE 82 U/L (35-104); ALT/SGPT 19 U/L (7.0-40); AST/SGOT 16 U/L (<34); BILIRUBIN,DIRECT < 0.1 MG/DL (<0.4); BILIRUBIN,TOTAL 0.4 MG/DL (0.3-1.2); BLOOD UREA NITROGEN 21 MG/DL (9-23); CALCIUM LEVEL 9.5 MG/DL (8.5-10.1); CARBON DIOXIDE LEVEL 28 MMOL/L (20-31); CHLORIDE LEVEL 104 MMOL/L (98-107); CREATININE FOR GFR 0.54 MG/DL (0.55-1.30); GLOMERULAR FILTRATION RATE > 60.0 (>60); GLUCOSE, FASTING 104 MG/DL (60-100); POTASSIUM SERUM 4.1 MMOL/L (3.5-5.1); SODIUM LEVEL 141 MMOL/L (136-145); TOTAL PROTEIN 8.1 G/DL (5.7-8.2)
[2024-11-03 13:37] LABS: THYROID STIMULATING HORMONE 2.228 uIU/ML (0.55-4.78)
[2024-11-03] MEDS ORDERED: DEPA250T32 PO (13:46)
[2024-11-03] MEDS ORDERED: ATIV1TAB10 PO (13:48)
[2024-11-03] MEDS ORDERED: HOME MED LIST COMPLETE! XX SCH (13:55)
[2024-11-03 16:22] VITALS: BP 105/71; TEMP 97.8; O2SAT 100
[2024-11-03] MEDS: metFORMIN (GLUCOPHAGE) 500MG TAB PO ONE (20:46)
[2024-11-03] MEDS: DIVALPROEX 250MG TAB PO SCH (20:46)
[2024-11-03] MEDS: LURASIDONE 20 MG TAB (LATUDA) PO SCH (21:50)
[2024-11-04] MEDS: LORazepam 0.5 MG TAB PO ONE (00:22)
[2024-11-04 06:36] VITALS: BP 105/59; TEMP 97.5; O2SAT 98
[2024-11-04] MEDS ORDERED: LURASIDONE 20 MG TAB (LATUDA) PO SCH (08:00)
[2024-11-04] MEDS: LORazepam 0.5 MG TAB PO SCH (09:14)
[2024-11-04 15:02] VITALS: BP 100/61; TEMP 98.8; O2SAT 95
[2024-11-04] MEDS: metFORMIN (GLUCOPHAGE) 500MG TAB PO SCH (17:28)
[2024-11-04] MEDS: LURASIDONE 20 MG TAB (LATUDA) PO SCH (20:42)
[2024-11-05 06:29] VITALS: BP 90/52; TEMP 98; O2SAT 97
[2024-11-05] MEDS: LITHIUM CARBONATE 150 MG CAP PO SCH (09:01)
[2024-11-05 15:30] VITALS: BP 94/72; TEMP 97.8; O2SAT 100
[2024-11-05] MEDS: LURASIDONE 20 MG TAB (LATUDA) PO SCH (17:32)
[2024-11-05] MEDS ORDERED: LITH150C PO (19:22)
[2024-11-06 06:14] VITALS: BP 105/64; TEMP 97.7; O2SAT 99
== END 2024-11-06 09:24 | disposition home or self-care (01) | DRG 753 ==
LOC: M ED 12:14 → M ED INP 14:28 → M PSY 15:39
PROVIDERS: ADMIT Psychiatry & Neurology Psychiatry; ATTEND Psychiatry & Neurology Psychiatry
DX: F31.81 Bipolar II disorder (principal); F41.1 Generalized anxiety disorder; F43.10 Post-traumatic stress disorder, unspecified; Z59.89 Other problems related to housing and economic circumstances; Z63.0 Problems in relationship with spouse or partner; Z88.8 Allergy status to other drugs, medicaments and biological substances; E28.2 Polycystic ovarian syndrome; R45.851 Suicidal ideations

== ENCOUNTER → 2024-11-19 | Outpatient (CLI) | payer BC ==
[~2024-11-19] MED LIST changes: +DIVA250T67; +LITH150C PO; +LURA20TA; +METF-838
== END ==
LOC: M PLALAB 15:50
PROVIDERS: ATTEND Psychiatry & Neurology Child & Adolescent Psychiatry
DX: F31.89 Other bipolar disorder (principal); F41.1 Generalized anxiety disorder; F43.10 Post-traumatic stress disorder, unspecified

== ENCOUNTER 2025-03-03 22:12 | Inpatient (IN) | payer BC ==
[~2025-03-03] VITALS: Ht 160 cm; Wt 114.0 kg
[2025-03-03] MEDS ORDERED: LITH300C PO (23:36)
[2025-03-03] MEDS ORDERED: HOME MED LIST COMPLETE! XX SCH (23:40)
[2025-03-04 00:14] LABS: HEMOGLOBIN 13.4 g/dl (12.0-15.5); MEAN CORPUSCULAR HGB CONC 33.5 g/dl (32.0-36.5); MEAN CORPUSCULAR VOLUME 89.5 fl (80.0-96.0); PLATELET COUNT, AUTOMATED 257 10^3/uL (150-450); RED BLOOD COUNT 4.47 10^6/uL (4.00-5.40); WHITE BLOOD COUNT 11.6 10^3/uL (4.0-10.0)
[2025-03-04 00:40] LABS: AMPHETAMINES LEVEL URINE NEGATIVE (NEGATIVE); CANNABINOIDS URINE NEGATIVE (NEGATIVE); METHADONE URINE NEGATIVE (NEGATIVE); OPIATES URINE NEGATIVE (NEGATIVE); PHENCYCLIDINE URINE NEGATIVE (NEGATIVE)
[2025-03-04 00:41] LABS: BARBITURATES URINE NEGATIVE (NEGATIVE); BENZODIAZEPINES URINE NEGATIVE (NEGATIVE); COCAINE METABOLITE URINE NEGATIVE (NEGATIVE)
[2025-03-04 01:21] LABS: THYROID STIMULATING HORMONE 10.219 uIU/ML (0.55-4.78)
[2025-03-04 01:26] LABS: ETHYL ALCOHOL (ETHANOL) < 0.003 % (0.000-0.010); HCG, SERUM QUALITATIVE NEGATIVE (NEGATIVE); SALICYLATE LEVEL < 3.0 MG/DL (<30)
[2025-03-04] MEDS ORDERED: diphenhydrAMINE 25MG CAP PO PRN (01:30)
[2025-03-04] MEDS ORDERED: MAALOX 30 ML SUSP *UDC PO PRN (01:30)
[2025-03-04] MEDS ORDERED: ACETAMINOPHEN 325 MG TAB PO PRN (01:30)
[2025-03-04] MEDS ORDERED: IBUPROFEN 400MG TAB PO PRN (01:30)
[2025-03-04] MEDS ORDERED: MOM 30ML SUSPENSION UDC PO PRN (01:30)
[2025-03-04] MEDS ORDERED: traZODone 50 MG TAB PO PRN (01:30)
[2025-03-04 02:50] VITALS: BP 108/53; TEMP 98; O2SAT 97
[2025-03-04 03:21] LABS: ALBUMIN 3.6 G/DL (3.2-5.2); ALKALINE PHOSPHATASE 52 U/L (35-104); ALT/SGPT 26 U/L (7.0-40); AST/SGOT 15 U/L (<34); BILIRUBIN,DIRECT < 0.1 MG/DL (<0.4); BILIRUBIN,TOTAL 0.3 MG/DL (0.3-1.2); BLOOD UREA NITROGEN 21 MG/DL (9-23); CALCIUM LEVEL 9.6 MG/DL (8.5-10.1); CARBON DIOXIDE LEVEL 26 MMOL/L (20-31); CHLORIDE LEVEL 106 MMOL/L (98-107); CREATININE FOR GFR 0.54 MG/DL (0.55-1.30); GLOMERULAR FILTRATION RATE > 90.0 (>60); GLUCOSE, FASTING 98 MG/DL (60-100); SODIUM LEVEL 144 MMOL/L (136-145); TOTAL PROTEIN 7.1 G/DL (5.7-8.2)
[2025-03-04 06:25] VITALS: BP 106/56; TEMP 97.2; O2SAT 98
[2025-03-04] MEDS ORDERED: LORazepam 0.5 MG TAB PO PRN (08:10)
[2025-03-04] MEDS: CARIPRAZINE 1.5MG CAPSULE (VRAYLAR) PO SCH (09:08)
[2025-03-04] MEDS: DIVALPROEX 250MG TAB PO SCH (09:08)
[2025-03-04] MEDS: LITHIUM CARBONATE 300 MG CAP PO SCH (10:34)
[2025-03-04 12:35] LABS: LITHIUM LEVEL 0.99 MMOL/L (1.0-1.20)
[2025-03-04 15:12] VITALS: BP 106/55; TEMP 97.3; O2SAT 100
[2025-03-04] MEDS ORDERED: LURASIDONE 20 MG TAB (LATUDA) PO SCH (18:00)
[2025-03-05 07:01] VITALS: BP 97/65; TEMP 97.7; O2SAT 98
[2025-03-05 07:15] LABS: CHOLESTEROL RISK RATIO 3.65 (<5); HDL CHOLESTEROL 50.9 MG/DL (>40); LDL CHOLESTEROL 104.9 MG/DL (<100); NON-HDL-C 135.1 MG/DL
[2025-03-05] MEDS ORDERED: VRAY1.5C PO (07:19)
== END 2025-03-05 10:40 | disposition home or self-care (01) | DRG 753 ==
LOC: M ED 22:12 → M ED INP 03-04 01:27 → M PSY 03-04 02:39
PROVIDERS: ADMIT Psychiatry & Neurology Neurology; ATTEND Psychiatry & Neurology Neurology
DX: F31.9 Bipolar disorder, unspecified (principal); R45.851 Suicidal ideations; F41.1 Generalized anxiety disorder; F43.10 Post-traumatic stress disorder, unspecified; Z62.811 Personal history of psychological abuse in childhood; Z79.899 Other long term (current) drug therapy; Z88.8 Allergy status to other drugs, medicaments and biological substances; E07.9 Disorder of thyroid, unspecified

== ENCOUNTER 2025-05-19 09:50 | Inpatient (IN) | payer BC ==
[~2025-05-19] VITALS: Ht 160 cm; Wt 121.9 kg
[~2025-05-19 09:50] MED LIST changes: -DEPA250T32 PO; +DIVA-65 PO; +LITH300C PO; +VRAY1.5C PO
[2025-05-19] MEDS ORDERED: LURA40TA2 PO (09:58)
[2025-05-19] MEDS ORDERED: LEVO75TA4 PO (09:58)
[2025-05-19] MEDS ORDERED: LITH150C PO (09:58)
[2025-05-19 10:32] LABS: PLATELET COUNT, AUTOMATED 249 10^3/uL (150-450)
[2025-05-19 10:54] LABS: ETHYL ALCOHOL (ETHANOL) 0.004 % (0.000-0.010)
[2025-05-19 10:55] LABS: SALICYLATE LEVEL < 3.0 MG/DL (<30)
[2025-05-19 10:56] LABS: ALT/SGPT 76 U/L (7.0-40); AST/SGOT 36 U/L (<34); CALCIUM LEVEL 9.5 MG/DL (8.5-10.1); CARBON DIOXIDE LEVEL 26 MMOL/L (20-31); CHLORIDE LEVEL 106 MMOL/L (98-107); CREATININE FOR GFR 0.65 MG/DL (0.55-1.30); GLOMERULAR FILTRATION RATE > 90.0 (>60); POTASSIUM SERUM 4.0 MMOL/L (3.5-5.1); SODIUM LEVEL 144 MMOL/L (136-145)
[2025-05-19 11:05] LABS: AMPHETAMINES LEVEL URINE NEGATIVE (NEGATIVE); BARBITURATES URINE NEGATIVE (NEGATIVE); BENZODIAZEPINES URINE NEGATIVE (NEGATIVE); CANNABINOIDS URINE NEGATIVE (NEGATIVE); COCAINE METABOLITE URINE NEGATIVE (NEGATIVE); METHADONE URINE NEGATIVE (NEGATIVE); OPIATES URINE NEGATIVE (NEGATIVE); PHENCYCLIDINE URINE NEGATIVE (NEGATIVE)
[2025-05-19 11:57] LABS: URINE PREG TEST NEGATIVE (NEGATIVE)
[2025-05-19 12:04] LABS: VALPROIC ACID (DEPAKOTE) 54.1 UG/ML (50.0-100.0)
[2025-05-19 12:07] LABS: LITHIUM LEVEL 1.19 MMOL/L (1.0-1.20)
[2025-05-19] MEDS ORDERED: HOME MED LIST COMPLETE! XX SCH (13:20)
[2025-05-19] MEDS: VITAMIN D 1,000 INTERNATIONAL UNITS TABLET PO SCH (20:30)
[2025-05-19] MEDS: LURASIDONE HCL 40 MG TAB PO SCH (20:30)
[2025-05-19] MEDS: LITHIUM CARBONATE 600 MG CAP PO SCH (20:30)
[2025-05-19] MEDS: DIVALPROEX 250 MG TAB PO SCH (20:30)
[2025-05-20] MEDS: LEVOTHYROXINE 75 MCG TABLET (0.075 MG) PO SCH (06:36)
[2025-05-20] MEDS: LITHIUM CARBONATE 300 MG CAP PO SCH (09:53)
[2025-05-20] MEDS: LITHIUM CARBONATE 150 MG CAP PO SCH (14:07)
[2025-05-21] MEDS ORDERED: NICOTINE 14 MG/24 HR TRANSDERMAL TD SCH (09:00)
[2025-05-21] MEDS ORDERED: IBUPROFEN 400 MG TAB PO PRN (14:00)
[2025-05-21] MEDS ORDERED: ACETAMINOPHEN 325 MG TAB PO PRN (14:00)
[2025-05-21] MEDS ORDERED: MAALOX 30 ML SUSP *UDC PO PRN (14:00)
[2025-05-21] MEDS ORDERED: MOM 30 ML SUSPENSION UDC PO PRN (14:00)
[2025-05-21] MEDS ORDERED: traZODone 50 MG TAB PO PRN (14:00)
[2025-05-21] MEDS ORDERED: LORazepam 1 MG TAB PO PRN (14:00)
[2025-05-21] MEDS ORDERED: OLANZapine 5 MG TAB PO PRN (14:00)
[2025-05-21] MEDS ORDERED: HALOPERIDOL 5 MG TAB PO PRN (14:00)
[2025-05-21 14:52] VITALS: BP 140/91; TEMP 98.3; O2SAT 97
[2025-05-21] MEDS: LITHIUM CARBONATE 300 MG CAP PO SCH (20:33)
[2025-05-21] MEDS: LURASIDONE HCL 40 MG TAB PO SCH (20:34)
[2025-05-21] MEDS: DIVALPROEX 250 MG TAB PO SCH (20:34)
[2025-05-22] MEDS: LEVOTHYROXINE 75 MCG TABLET (0.075 MG) PO SCH (05:57)
[2025-05-22 06:46] VITALS: BP 98/55; TEMP 98.1; O2SAT 96
[2025-05-22] MEDS ORDERED: PILL CUTTER 1 EACH XX PRN (14:45)
[2025-05-22 16:01] VITALS: BP 112/63; TEMP 98.5; O2SAT 97
[2025-05-22] MEDS: LURASIDONE HCL 40 MG TAB PO SCH (20:21)
[2025-05-23 06:53] VITALS: BP_SYST 123; BP_SYST 97; BP_DIAS 56; BP_DIAS 82; TEMP 96.3; TEMP 97.1; O2SAT 97; O2SAT 98
[2025-05-23 14:38] VITALS: BP 113/59; TEMP 98; O2SAT 97
[2025-05-23] MEDS: DIVALPROEX 250 MG TAB PO SCH (20:26)
[2025-05-24 06:37] VITALS: BP 108/58; TEMP 97.6; O2SAT 100
== END 2025-05-24 13:35 | disposition home or self-care (01) | DRG 753 ==
LOC: M ED 09:50 → M ED INP 05-21 13:59 → M PSY 05-21 14:46
PROVIDERS: ADMIT Internal Medicine; ATTEND Internal Medicine
DX: F31.32 Bipolar disorder, current episode depressed, moderate (principal); R45.851 Suicidal ideations; F41.1 Generalized anxiety disorder; F41.0 Panic disorder [episodic paroxysmal anxiety]; F60.3 Borderline personality disorder; Z88.8 Allergy status to other drugs, medicaments and biological substances; E03.9 Hypothyroidism, unspecified; Z79.890 Hormone replacement therapy; E55.9 Vitamin D deficiency, unspecified; Z79.899 Other long term (current) drug therapy